=== PATIENT | female | born 1940 | race Caucasian/White ===

== ENCOUNTER → 2020-08-11 16:00 | Outpatient (CLI) | payer OTHER, SELFPAY ==
--- NOTE | ~2020-08-11 | XR_ITS ---
EXAMINATION: XR AC joint BI DATE: 08/11/2020 16:23 INDICATION: Right shoulder pain TECHNIQUE: 2 views of the bilateral acromioclavicular joints were obtained in AP projection with and without weights. COMPARISON: None. FINDINGS: Normal alignment at both shoulders both without and with weightbearing. Specifically no subluxation o f the acromioclavicular joints. There is moderate right-sided mild left-sided acromioclavicular osteo arthritis. The bilateral glenohumeral joints are not profiled however appear unremarkable. No fractur e. Mild to moderate spondylosis in the visualized mid cervical to lower thoracic spine. Atherosclerot ic ossifications project over the expected location of the left carotid bulb. Left lung volume is dec reased with prominent elevation of the left hemidiaphragm and left basilar atelectasis. IMPRESSION: 1. 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 Reviewed, dictated and finalized at location A. ALES SENIOR SPECIALIST
== END ==
PROVIDERS: PCP Internal Medicine; Visit Provider Internal Medicine
DX: M25.511 Pain in right shoulder (principal); M25.512 Pain in left shoulder; M19.012 Primary osteoarthritis, left shoulder
CPT/HCPCS: 73050

== ENCOUNTER 2020-11-11 09:33 | Outpatient (CLI) | payer OTHER, SELFPAY ==
[2020-11-11 10:07] LABS: Basophils Absolute Auto 0.1 K/mm3 (0.0-0.1); Basophils Percent Auto 0.8 % (0.2-1.2); Eosinophils Absolute Auto 0.2 K/mm3 (0-0.3); Eosinophils Percent Auto 2.2 % (0-4.4); Hematocrit 45.1 % (37.0-47.0); Hemoglobin 14.8 g/dL (12.0-15.0); Immature Granulocyte Absolute 0.03 K/mm3 (0.00-0.031); Immature Granulocyte Percent A 0.4 % (0-0.5); Lymphocytes Absolute Auto 0.94 K/mm3 (0.9-3.2); Lymphocytes Percent Auto 12.3 % (18.3-44.2); Mean Corpuscular HGB Conc 32.8 g/dl (32-36); Mean Corpuscular Hemoglobin 31.1 pg (26-34); Mean Corpuscular Volume 94.7 fl (80-100); Mean Platelet Volume 9.2 fl (7.4-10.4); Monocytes Absolute Auto 0.6 K/mm3 (0.1-0.6); Monocytes Percent Auto 8.2 % (2.6-8.5); Neutrophils Absolute Auto 5.8 K/mm3 (1.3-6.7); Neutrophils Percent Auto 76.1 % (45.5-73.1); Platelet Count Result 298 k/mm3 (150-375); Red Blood Count 4.76 M/mm3 (4.2-5.4); Red Cell Distribution Width 11.8 % (11.5-14.5); White Blood Count 7.7 K/mm3 (4.5-10.0)
[2020-11-11 10:20] LABS: Rheumatoid Factor < 8.6 IU/ML (<12)
[2020-11-11 10:23] LABS: CRP 0.7 mg/dL (<1.0); Uric Acid 4.2 mg/dL (2.5-7.5)
[2020-11-11 11:15] LABS: Erythrocyte Sedimentation Rate 24 mm/hr (0-20)
== END 2020-11-11 09:34 | disposition home or self-care (01) ==
PROVIDERS: PCP Internal Medicine; Visit Provider Orthopaedic Surgery
DX: M17.0 Bilateral primary osteoarthritis of knee (principal); M06.9 Rheumatoid arthritis, unspecified
CPT/HCPCS: 36415; 84550; 85025; 85652; 86038; 86140; 86430

== ENCOUNTER 2021-06-29 12:24 | Outpatient (CLI) | payer OTHER, SELFPAY ==
[2021-06-29 13:56] LABS: SARS-CoV-2 RNA PCR Negative (Negative)
== END 2021-06-29 12:25 | disposition home or self-care (01) ==
PROVIDERS: PCP Internal Medicine; Visit Provider Internal Medicine
DX: R68.89 Other general symptoms and signs (principal); Z20.822 Contact with and (suspected) exposure to COVID-19
CPT/HCPCS: C9803; U0003; U0005

== ENCOUNTER 2021-07-06 08:58 | Outpatient (CLI) | payer OTHER, SELFPAY ==
[2021-07-06 11:15] LABS: SARS-CoV-2 RNA PCR Positive (Negative)
== END 2021-07-06 08:59 | disposition home or self-care (01) ==
LOC: CHSLAB 09:00
PROVIDERS: PCP Internal Medicine; Visit Provider Internal Medicine
DX: U07.1 COVID-19 (principal); R68.89 Other general symptoms and signs
CPT/HCPCS: C9803; U0003; U0005

== ENCOUNTER → 2022-03-08 08:38 | Outpatient (CLI) | payer OTHER, SELFPAY ==
--- NOTE | ~2022-03-08 | US_ITS ---
EXAMINATION: US soft tissue head and neck DATE: 03/08/2022 08:56 INDICATION: Left supraclavicular lump. TECHNIQUE: Multiple grayscale and Doppler ultrasound images of the left supraclavicular region were o btained. COMPARISON: None FINDINGS: In the left thyroid lobe, there is a 3.1 cm predominantly solid, isoechoic, wider than tall nodule with ill-defined margin without echogenic foci (TI-RADS TR3). In the left thyroid lobe, there is a 1.8 cm predominantly solid, isoechoic, wider than tall nodule with ill-defined margin without e chogenic foci (TR3). IMPRESSION: 1. Left thyroid nodules in the patient's area of concern. Ultrasound-guided fine-needle aspiration of the 3.1 cm left thyroid nodule is recommended. Reviewed, dictated and finalized at location A. IMPRESSION: 1. Left thyroid nodules in the patient's area of concern. Ultrasound-guided fin e-needle aspiration of the 3.1 cm left thyroid nodule is recommended.
== END ==
PROVIDERS: PCP Family Medicine; Visit Provider Family Medicine
DX: E04.2 Nontoxic multinodular goiter (principal)
CPT/HCPCS: 76536

== ENCOUNTER 2022-03-09 10:49 | Outpatient (CLI) | payer OTHER, SELFPAY ==
[2022-03-09 20:01] LABS: Thyroid Stimulating Hormone Reflex 0.476 uIU/mL (0.465-4.68)
== END 2022-03-09 10:50 | disposition home or self-care (01) ==
LOC: ANHGOSHLAB 10:50
PROVIDERS: PCP Family Medicine; Visit Provider Family Medicine
DX: E04.1 Nontoxic single thyroid nodule (principal)
CPT/HCPCS: 36415; 84443

== ENCOUNTER 2022-03-17 12:35 | Outpatient (CLI) | payer OTHER, SELFPAY ==
--- NOTE | ~2022-03-17 | US_ITS ---
EXAMINATION: US FNA w image guidance DATE: 03/17/2022 13:42 INDICATION: Left thyroid nodule TECHNIQUE: A time-out was performed to verify the patient's name, date of , and procedure to be performed . The procedure and its benefits and risks were discussed with the patient. Risks specifically discus sed included bleeding and infection. The patient understood the risks and agreed to proceed. The neck was prepped and draped in the usual sterile manner. 3 mL 1% lidocaine was used for local anesthesia . 6 passes were made with a 25G needle into the lesion. Appropriate needle location was documented with continuous sonographic guidance. A sterile bandage was applied. There were no immediate compli cations. FINDINGS: Grayscale ultrasound images demonstrate biopsy needles advanced into a 3.3 x 2.1 x 2.4 cm solid heter ogeneously isoechoic TI-RADS 3 left thyroid mass. IMPRESSION: 1. Successful ultrasound-guided fine needle aspiration of 3.3 cm solid TI-RADS 3 left thyroid mass.. Reviewed, dictated and finalized at location A.
== END 2022-03-17 12:36 | disposition home or self-care (01) ==
PROVIDERS: PCP Family Medicine; Visit Provider Family Medicine
DX: E04.1 Nontoxic single thyroid nodule (principal)
CPT/HCPCS: 10005; 88173; 88305

== ENCOUNTER 2022-05-04 08:16 | Day surgery (SDC) | payer OTHER, SELFPAY ==
[2022-04-26 12:16] VITALS: BMI 20.4
[2022-05-04 08:50] VITALS: BP 150/74; PULSE 72; RESP 16; TEMP 36.9; O2SAT 98
[2022-05-04] MEDS: OFLOXACIN 0.3% OPHTH SOLN 5 ML BTL 1 DROP AFFCTD EYE ×2 (08:50→10:42)
[2022-05-04] MEDS: TETRACAINE HCL 0.5% OPHTH SOLN 4 ML BTL 1 DROP AFFCTD EYE ×3 (08:50→09:00)
--- NOTE | 2022-05-04 08:57 | WPDHPUPDATE1 ---
History and Physical Update Update Date/Time: 05/04/22 08:57 History and Physical has been reviewed, including an updated exam of the patient. There are NO changes in the patient's condition. Risks, benefits, and alternatives have been discussed and questions answered. Patient agrees to proceed with procedure.
--- NOTE | 2022-05-04 09:17 | WPDANESEPPF ---
Anes - Initial Pre Proc Eval Procedure: Operation Date: 05/04/22 10:00 Proposed Procedures p Cataract Extraction with Lens Implant-Right Eye - Wilman Bautista MD Date/Time: 05/04/22 09:17 Surgeon: Wilman Bautista MD Pre Op Diagnosis: Cataract Right Eye Patient Data Age: 81 Gender: F Height: 1.63 m Weight: 56.9 kg Last Vital Signs Temp 36.9 C 05/04/22 08:50 Pulse 72 05/04/22 08:50 Resp 16 05/04/22 08:50 BP 150/74 H 05/04/22 08:50 Pulse Ox 98 05/04/22 08:50 O2 Del Method Room Air 05/04/22 08:50 Allergies Allergy/AdvReac Type Severity Reaction Status Date / Time No Known Allergies Allergy Verified 05/04/22 09:16 Home Medications Medication Instructions Recorded Confirmed Type No Home Medications 04/26/22 05/04/22 History Patient hx anesthesia problems: none Family hx anesthesia problems: none Results Review: All pre-operative results and documents have been reviewed as part of the pre-operative evaluation. 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, bilateral GERD (gastroesophageal reflux disease) Hypertension Skin cancer Surgical History Surgical History History of cholecystectomy Family History Family History Sibling Family history of migraine headaches Hypertension Family history of arthritis Father Family history of lung cancer Social History Social History Smoking status: Never smoker Second hand tobacco smoke exposure: No Alcohol intake: never Drinks per week: 3 Alcohol use details: 2-3 glasses of wine per week Substance use: never Substance use type: does not use Living arrangements: with family Gender identity (if verbalized by the patient): Female Spiritual care concerns: No Anes - Eval Final PreProcedure Day of Procedure 05/04/22 09:17 Patient weight: normal Heart: regular rate and rhythm Lungs: clear to auscultation Airway: Mallampati scale class II Neurological: other (alert) Last oral intake: >/= 8 hours ASA classification: II Emergent: no Anesthetic plan: proceed Anesthesia type and monitoring: monitored anesthesia care and standard monitoring Results Review: All pre-operative results and documents have been reviewed as part of the pre-operative evaluation. Informed Consent: The patient's anesthetic plan and its attendant risks and benefits were discussed with the patient/family/POA. Questions were solicited and answers provided to the satisfaction of the patient/family/POA.
[2022-05-04] MEDS: LIDOCAINE HCL 1% PF INJ 5 ML VIAL 1 ML INTRAOCULA (10:25)
[2022-05-04] MEDS: LIDOCAINE HCL 2% JELLY 5 ML TUBE 1 APPLIC AFFCTD EYE (10:29)
[2022-05-04] MEDS: NEOMYCIN/POLYMYXIN/DEXAMETH OP OINT 3.5 GM TUBE 1 APPLIC AFFCTD EYE (10:42)
[2022-05-04] MEDS: BRIMONIDINE TARTRATE 0.2% OP SOLN 5 ML BTL 1 DROP AFFCTD EYE (10:42)
[2022-05-04] MEDS: prednisoLONE ACETATE 1% OPHTH 5 ML 1 DROP AFFCTD EYE (10:42)
[2022-05-04 10:44] VITALS: BP 146/67; PULSE 66; RESP 16; O2SAT 96
[2022-05-04] MEDS: acetaZOLAMIDE TAB 250 MG TABLET PO (10:57)
--- NOTE | 2022-05-04 11:05 | WPDANESPN ---
Anes - Prog Note Post-Op Date/Time: 05/04/22 11:05 Cardiovascular status: normal Respiratory status: normal Airway patency: baseline Mental status: baseline Post-Op hydration status: normal Vital Signs: Last Vital Signs Temp 36.9 C 05/04/22 08:50 Pulse 66 05/04/22 10:44 Resp 16 05/04/22 10:44 BP 146/67 H 05/04/22 10:44 Pulse Ox 96 05/04/22 10:44 O2 Del Method Room Air 05/04/22 10:44 Pain Score (VAS): 0 Patient Feedback: Patient satisfied with anesthetic care.
--- NOTE | 2022-05-04 12:23 | W.PM.PROC2 ---
Procedure Note - Detailed Date of Procedure 05/04/22 Pre-op Diagnosis Cataract Right Eye Post-op Diagnosis Same Procedure Performed Cataract Extraction (by Phacoemulsification) and lntraocular Lens Implant Surgeon Wilman Bautista MD Description of Procedure The eye was anesthetized with topical 0.75% bupivacaine. After intravenous sedation and placement of monitors, the patient was prepped and draped in the usual sterile manner. A lid speculum was placed. A paracentesis was made, and preservative free 1% lidocaine was instilled in the anterior chamber. The anterior chamber was then filled with Viscoat viscoelastic. A alyson keratome was used to create the wound. Continuous tear anterior capsulotomy was performed. The lens was hydro dissected before being removed with phacoemulsification. The remaining lenticular cortex was removed with aspiration. The capsular bag was polished and filled with viscoelastic material. An intraocular lens was chosen, inspected, irrigated and placed within the capsular bag where it was seen to be centered and stable. The viscoelastic material was aspirated. The wound was closed and found to be watertight. Ciloxan drops were placed in the eye. The speculum was removed. A Mishra shield was applied. The patient tolerated the procedure well and left the operating room in satisfactory condition. Implants See chart Complications None Condition Stable Disposition Same day
== END 2022-05-04 11:09 | disposition home or self-care (01) ==
PROVIDERS: PCP Family Medicine; Visit Provider Student in an Organized Health Care Education/Training Program
PROC: (CPT 66983; principal; 2022-05-04 10:00)
DX: H25.11 Age-related nuclear cataract, right eye (principal)
CPT/HCPCS: 66984

== ENCOUNTER 2022-06-01 07:53 | Day surgery (SDC) | payer OTHER, SELFPAY ==
[2022-05-23 13:11] VITALS: BMI 21.2
[2022-06-01 08:45] VITALS: BP 181/72; PULSE 61; RESP 20; TEMP 36.8; O2SAT 99
[2022-06-01] MEDS: TETRACAINE HCL 0.5% OPHTH SOLN 4 ML BTL 1 DROP AFFCTD EYE ×3 (08:50→09:00)
[2022-06-01] MEDS: OFLOXACIN 0.3% OPHTH SOLN 5 ML BTL 1 DROP AFFCTD EYE (08:50)
--- NOTE | 2022-06-01 08:56 | P.PNAN_ITS ---
Anes - Initial Pre Proc Eval Procedure: Operation Date: 06/01/22 09:30 Proposed Procedures p Cataract Extraction with Lens Implant-Left Eye - Wilman Bautista MD Date/Time: 06/01/22 08:56 Surgeon: Wilman Bautista MD Pre Op Diagnosis: Cataract Left Eye Patient Data Age: 81 Gender: F Height: 1.63 m Weight: 56 kg Allergies Allergy/AdvReac Type Severity Reaction Status Date / Time No Known Allergies Allergy Verified 06/01/22 08:53 Home Medications Medication Instructions Recorded Confirmed Type No Home Medications 06/01/22 06/01/22 History Patient hx anesthesia problems: post op nausea/vomiting Family hx anesthesia problems: none Results Review: All pre-operative results and documents have been reviewed as part of the pre- operative evaluation. 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, bilateral GERD (gastroesophageal reflux disease) Hypertension Skin cancer Surgical History Surgical History History of cholecystectomy Family History Family History Sibling Family history of migraine headaches Hypertension Family history of arthritis Father Family history of lung cancer Social History Social History Smoking status: Never smoker Second hand tobacco smoke exposure: No Alcohol intake: current Drinks per week: 3 Alcohol use details: 2-3 glasses of wine per week Substance use: never Substance use type: does not use Living arrangements: with family Gender identity (if verbalized by the patient): Female Spiritual care concerns: No Anes - Eval Final PreProcedure Day of Procedure 06/01/22 08:56 Patient weight: normal Heart: regular rate and rhythm Lungs: clear to auscultation Airway: Mallampati scale class II Neurological: other (alert) Last oral intake: >/= 8 hours ASA classification: II Emergent: no Anesthetic plan: proceed Anesthesia type and monitoring: monitored anesthesia care and standard monitoring Results Review: All pre-operative results and documents have been reviewed as part of the pre- operative evaluation. Informed Consent: The patient's anesthetic plan and its attendant risks and benefits were discussed with the patient/family/POA. Questions were solicited and answers provided to the satisfaction of the patient/family/POA.
--- NOTE | 2022-06-01 09:02 | WPDHPUPDATE1 ---
History and Physical Update Update Date/Time: 06/01/22 09:02 History and Physical has been reviewed, including an updated exam of the patient. There are NO changes in the patient's condition. Risks, benefits, and alternatives have been discussed and questions answered. Patient agrees to proceed with procedure.
[2022-06-01] MEDS: LIDOCAINE HCL 2% JELLY 5 ML TUBE 1 APPLIC AFFCTD EYE (09:39)
[2022-06-01] MEDS: LIDOCAINE HCL 1% PF INJ 5 ML VIAL 1 ML INTRAOCULA (09:48)
[2022-06-01] MEDS: NEOMYCIN/POLYMYXIN/DEXAMETH OP OINT 3.5 GM TUBE 1 APPLIC AFFCTD EYE (10:03)
[2022-06-01 10:05] VITALS: BP 139/66; PULSE 63; RESP 14; O2SAT 98
[2022-06-01] MEDS: acetaZOLAMIDE TAB 250 MG TABLET PO (10:13)
--- NOTE | 2022-06-01 10:21 | WPDANESPN ---
Anes - Prog Note Post-Op Date/Time: 06/01/22 10:21 Cardiovascular status: normal Respiratory status: normal Airway patency: baseline Mental status: baseline Post-Op hydration status: normal Vital Signs: Last Vital Signs Temp 36.8 C 06/01/22 08:45 Pulse 63 06/01/22 10:05 Resp 14 06/01/22 10:05 BP 139/66 06/01/22 10:05 Pulse Ox 98 06/01/22 10:05 O2 Del Method Room Air 06/01/22 10:05 Pain Score (VAS): 0 Patient Feedback: Patient satisfied with anesthetic care.
--- NOTE | 2022-06-01 11:53 | W.PM.PROC2 ---
Procedure Note - Detailed Date of Procedure 06/01/22 Pre-op Diagnosis 1) Cataract Left Eye 2) Miotic pupillary cyst LEFT eye Post-op Diagnosis Same Procedure Performed Complex cataract Extraction (by Phacoemulsification) and lntraocular Lens Implant Surgeon Wilman Bautista MD Anesthesia MAC Description of Procedure The eye was anesthetized with topical 0.75% bupivacaine. After intravenous sedation and placement of monitors, the patient was prepped and draped in the usual sterile manner. A lid speculum was placed. A paracentesis was made, and preservative free 1% lidocaine was instilled in the anterior chamber. The anterior chamber was then filled with Viscoat viscoelastic and a Malyugin ring was placed. A alyson keratome was used to create the wound. Continuous tear anterior capsulotomy was performed. The lens was hydro dissected before being removed with phacoemulsification. The remaining lenticular cortex was removed with aspiration. The capsular bag was polished and filled with viscoelastic material. An intraocular lens was chosen, inspected, irrigated and placed within the capsular bag where it was seen to be centered and stable. The ring was removed and viscoelastic material was aspirated. The wound was closed and found to be watertight. Ciloxan drops were placed in the eye. The speculum was removed. A Mishra shield was applied. The patient tolerated the procedure well and left the operating room in satisfactory condition. Implants See chart Complications None Condition Stable Disposition Same day
== END 2022-06-01 10:31 | disposition home or self-care (01) ==
PROVIDERS: PCP Family Medicine; Visit Provider Student in an Organized Health Care Education/Training Program
PROC: (CPT 66983; principal; 2022-06-01 09:30)
DX: H25.12 Age-related nuclear cataract, left eye (principal)
CPT/HCPCS: 66982

== ENCOUNTER 2022-08-30 10:08 | Outpatient (CLI) | payer OTHER, SELFPAY ==
[2022-08-30 19:26] LABS: Alanine Aminotransferase 19 U/L (6-35); Albumin Level 4.4 g/dL (3.5-5.1); Alkaline Phosphatase 80 U/L (38-126); Anion Gap 6 mmol/L (8-16); Aspartate Amino Transferase 40 U/L (14-36); Bilirubin,Total 0.5 mg/dL (0.2-1.3); Blood Urea Nitrogen 16 mg/dL (7-17); Calcium 9.4 mg/dL (8.4-10.2); Carbon Dioxide 29 mmol/L (22-30); Chloride 104 mmol/L (98-107); Estimated Glomerular Filt Rate > 60; Glucose 77 mg/dL (65-110); Sodium 139 mmol/L (137-145)
== END 2022-08-30 10:09 | disposition home or self-care (01) ==
LOC: ANHGOSHLAB 10:09
PROVIDERS: PCP Family Medicine; Visit Provider Family Medicine
DX: E78.5 Hyperlipidemia, unspecified (principal); Z13.220 Encounter for screening for lipoid disorders; Z13.228 Encounter for screening for other metabolic disorders
CPT/HCPCS: 36415; 80053

== ENCOUNTER 2023-05-04 09:33 | Outpatient (CLI) | payer OTHER, SELFPAY ==
[2023-05-04 12:41] LABS: Basophils Absolute Auto 0.1 K/mm3 (0.0-0.1); Basophils Percent Auto 1.3 % (0.2-1.2); Eosinophils Absolute Auto 0.2 K/mm3 (0-0.3); Eosinophils Percent Auto 3.4 % (0-4.4); Hematocrit 46.6 % (37.0-47.0); Immature Granulocyte Absolute 0.02 K/mm3 (0.00-0.031); Immature Granulocyte Percent A 0.4 % (0-0.5); Lymphocytes Absolute Auto 0.95 K/mm3 (0.9-3.2); Lymphocytes Percent Auto 17.8 % (18.3-44.2); Mean Corpuscular HGB Conc 32.2 g/dl (32-36); Mean Corpuscular Hemoglobin 31.7 pg (26-34); Mean Corpuscular Volume 98.5 fl (80-100); Mean Platelet Volume 10.3 fl (7.4-10.4); Monocytes Absolute Auto 0.5 K/mm3 (0.1-0.6); Monocytes Percent Auto 8.4 % (2.6-8.5); Neutrophils Absolute Auto 3.7 K/mm3 (1.3-6.7); Neutrophils Percent Auto 68.7 % (45.5-73.1); Platelet Count Result 265 k/mm3 (150-375); Red Blood Count 4.73 M/mm3 (4.2-5.4); Red Cell Distribution Width 11.9 % (11.5-14.5); White Blood Count 5.3 K/mm3 (4.5-10.0)
[2023-05-04 16:26] LABS: Alanine Aminotransferase 16 U/L (6-35); Albumin Level 4.5 g/dL (3.5-5.1); Alkaline Phosphatase 71 U/L (38-126); Anion Gap 6 mmol/L (8-16); Aspartate Amino Transferase 30 U/L (14-36); Bilirubin,Total 0.6 mg/dL (0.2-1.3); Blood Urea Nitrogen 14 mg/dL (7-17); Calcium 9.7 mg/dL (8.4-10.2); Carbon Dioxide 30 mmol/L (22-30); Chloride 104 mmol/L (98-107); Estimated Glomerular Filt Rate > 60; Glucose 87 mg/dL (65-110); Potassium 3.9 mmol/L (3.4-5.0); Sodium 140 mmol/L (137-145)
[2023-05-04 22:22] LABS: Thyroid Stimulating Hormone Reflex 0.648 uIU/mL (0.465-4.68)
== END 2023-05-04 09:34 | disposition home or self-care (01) ==
LOC: ANHGOSHLAB 09:35
PROVIDERS: PCP Family Medicine; Visit Provider Family Medicine
DX: R53.83 Other fatigue (principal); Z13.228 Encounter for screening for other metabolic disorders; Z13.29 Encounter for screening for other suspected endocrine disorder
CPT/HCPCS: 36415; 80053; 84443; 85025

== ENCOUNTER 2023-05-10 15:32 | Outpatient (CLI) | payer OTHER, SELFPAY ==
--- NOTE | ~2023-05-10 | CT_ITS ---
EXAMINATION: CT brain wo con DATE: 05/10/2023 15:46 INDICATION: Syncope and collapse. TECHNIQUE: Computed tomography (CT) of the head was performed without intravenous contrast. The mA wa s adjusted according to patient size. Iterative reconstruction technique was employed. The dose-lengt h product was 605.33 mGy-cm. COMPARISON: None FINDINGS: There is no intracranial hemorrhage, acute infarction, or abnormal intracranial mass lesion . There are scattered areas of low attenuation in the cerebral white matter. The ventricles are renay l in size. There is mild mucosal thickening in the paranasal sinuses. There are likely changes of ocu lar lens replacement surgeries. The mastoid air cells are normal. IMPRESSION: 1. Moderate nonspecific cerebral white matter disease, which likely represents chronic small vessel i schemic disease. Reviewed, dictated and finalized at location E. MACY BUYER IMPRESSION: 1. Moderate nonspecific cerebral white matter disease, which likely represents chronic small vessel ischemic disease.
== END 2023-05-10 15:33 | disposition home or self-care (01) ==
LOC: ANHIMG 15:33
PROVIDERS: PCP Family Medicine; Visit Provider Family Medicine
DX: R55 Syncope and collapse (principal); R90.82 White matter disease, unspecified
CPT/HCPCS: 70450

== ENCOUNTER 2023-06-01 14:35 | Outpatient (CLI) | payer OTHER, SELFPAY ==
--- NOTE | 2023-06-01 14:58 | ECHO_ITS ---
Patient Info Name: Pia Menchaca Age: 82 years : 1940 Gender: Female Ht: 64 in Wt: 124 lbs BSA: 1.59 m2 HR: 61 bpm BP: 148 / 81 mmHg Heart Rhythm: Sinus Rhythm Technical Quality: Good Exam Date: 06/01/2023 3:04 PM Exam Location: Echo Lab Patient Status: Outpatient Admit Date: 06/01/2023 Staff Ordering Physician: Elijah Shanks DO Medical Laboratory Technician: Davian Johnson RDCS Attending Provider: Elijah Shanks DO Referring Physician: Dimitris MAR; Exam Type: CA echo doppler color flow Study Info Indications - syncope Complete two-dimensional, color flow and Doppler transthoracic echocardiogram is performed. Summary 1. Complete two-dimensional, color flow and Doppler transthoracic echocardiogram is performed. 2. Left ventricular chamber dimension is normal. 3. Left ventricular systolic function is normal, estimated at 60-65%. 4. The left ventricular diastolic function is grade I diastolic dysfunction. 5. E/e' 11 is mildly elevated. 6. There is moderate aortic valve sclerosis. 7. There is mild aortic valve stenosis with a peak velocity of 225 cm/s, mean gradient of 11 mmHg, and aortic valve area of 1.9 cm2. 8. There is moderate aortic valve regurgitation. 9. There is mild tricuspid valve regurgitation. 10. No pulmonary hypertension, estimated pulmonary arterial systolic pressure is 30 mmHg. 11. There is trace pulmonic regurgitation. Left Ventricle E/e' 11 is mildly elevated. Left ventricular chamber dimension is normal. Left ventricular systolic function is normal, estimated at 60-65%. The left ventricular diastolic function is grade I diastolic dysfunction. Right Ventricle Right ventricular chamber dimension is normal. Right ventricular systolic function is normal. Left Atria Left atrial chamber dimension is normal. Right Atria Right atrial chamber dimension is normal. Aortic Valve The aortic valve is trileaflet. There is moderate aortic valve sclerosis. There is mild aortic valve stenosis with a peak velocity of 225 cm/s, mean gradient of 11 mmHg, and aortic valve area of 1.9 cm2. There is moderate aortic valve regurgitation. Pulmonic Valve There is trace pulmonic regurgitation. Mitral Valve There is no mitral valve stenosis. There is no mitral valve regurgitation. Tricuspid Valve There is mild tricuspid valve regurgitation. No pulmonary hypertension, estimated pulmonary arterial systolic pressure is 30 mmHg. Pericardium/Pleural There is no pericardial effusion. Inferior Vena Cava Normal inferior vena cava with >50% collapse upon inspiration consistent with normal right atrial pressure, 5 mmHg. Aorta The aortic root size at the sinus of Valsalva is normal. Left Ventricular Outflow Tract Name Value Normal LVOT 2D LVOT Diameter 1.8 cm LVOT Doppler LVOT Peak Gradient 10 mmHg LVOT Mean Gradient 6 mmHg LVOT VTI 36 cm LVOT VTI/AV VTI Ratio 0.8 LVOT Stroke Volume 88 ml LVOT CO 4.5 l/min LVOT CI 2.8 l/min/m2 Pulmonic Valve
== END 2023-06-01 14:36 | disposition home or self-care (01) ==
LOC: ANHCARD 14:35
PROVIDERS: PCP Family Medicine; Visit Provider Family Medicine
DX: R55 Syncope and collapse (principal); I08.3 Combined rheumatic disorders of mitral, aortic and tricuspid valves
CPT/HCPCS: 93306

== ENCOUNTER 2023-06-05 13:18 | Outpatient (CLI) | payer OTHER, SELFPAY ==
--- NOTE | 2023-06-08 14:30 | WPDHOLTEREM ---
Holter/Event Monitor Holter/Event Monitor Date of procedure: 06/05/23 Holter/Event Procedure: 48 Hr Holter Monitor Indications: Syncope Conclusion: 1. 48 hour holter monitor on 06/05/23. 2. Predominant rhythm is sinus rhythm. HR range 49-119 bpm; average HR 68 bpm. 3. There are 197 premature supraventricular complexes and 15 supraventricular couplets. There is 1 episode of atrial tachycardia at 119 bpm lasting 15 seconds at 20:11. 4. There are 2 premature ventricular complexes. No ventricular tachycardia. 5. No sinoatrial or atrioventricular blocks. No significant pauses greater than 2 seconds. 6. No symptoms available for correlation.
== END 2023-06-05 13:19 | disposition home or self-care (01) ==
LOC: ANHCARD 13:19
PROVIDERS: PCP Family Medicine; Visit Provider Family Medicine
DX: R55 Syncope and collapse (principal)
CPT/HCPCS: 93225; 93226

== ENCOUNTER 2023-08-24 12:33 | Outpatient (CLI) | payer OTHER, SELFPAY ==
[2023-08-24 13:51] LABS: SARS-CoV-2 RNA PCR Negative (Negative)
[2023-08-25 13:04] LABS: Influenza A QL RT-PCR Negative (Negative); Influenza B QL RT-PCR Negative (Negative)
== END 2023-08-24 12:34 | disposition home or self-care (01) ==
LOC: ANHLAB 12:34
PROVIDERS: PCP Family Medicine; Visit Provider Family Medicine
DX: R68.89 Other general symptoms and signs (principal); Z20.822 Contact with and (suspected) exposure to COVID-19
CPT/HCPCS: 87502; 87635

== ENCOUNTER 2023-08-29 09:28 | Outpatient (CLI) | payer OTHER, SELFPAY ==
[2023-08-29 18:39] LABS: Alanine Aminotransferase 35 U/L (6-35); Albumin Level 3.9 g/dL (3.5-5.1); Alkaline Phosphatase 80 U/L (38-126); Anion Gap 4 mmol/L (8-16); Aspartate Amino Transferase 43 U/L (14-36); Bilirubin,Total 0.7 mg/dL (0.2-1.3); Blood Urea Nitrogen 9 mg/dL (7-17); Calcium 9.2 mg/dL (8.4-10.2); Carbon Dioxide 31 mmol/L (22-30); Chloride 102 mmol/L (98-107); Cholesterol 154 mg/dL (0-200); Estimated Glomerular Filt Rate > 60; Glucose 88 mg/dL (65-110); HDL Direct 58 mg/dL; Lipase 98 U/L (23-300); Sodium 137 mmol/L (137-145); Triglycerides 102 mg/dL (<150)
[2023-08-29 18:41] LABS: Basophils Percent Auto 0.6 % (0.2-1.2); Eosinophils Absolute Auto 0.1 K/mm3 (0-0.3); Eosinophils Percent Auto 1.4 % (0-4.4); Hematocrit 47.7 % (37.0-47.0); Hemoglobin 15.4 g/dL (12.0-15.0); Immature Granulocyte Absolute 0.01 K/mm3 (0.00-0.031); Immature Granulocyte Percent A 0.1 % (0-0.5); Lymphocytes Absolute Auto 0.91 K/mm3 (0.9-3.2); Lymphocytes Percent Auto 12.8 % (18.3-44.2); Mean Corpuscular HGB Conc 32.3 g/dl (32-36); Mean Corpuscular Hemoglobin 31.8 pg (26-34); Mean Corpuscular Volume 98.6 fl (80-100); Mean Platelet Volume 10.2 fl (7.4-10.4); Monocytes Absolute Auto 0.6 K/mm3 (0.1-0.6); Monocytes Percent Auto 8.2 % (2.6-8.5); Neutrophils Absolute Auto 5.5 K/mm3 (1.3-6.7); Neutrophils Percent Auto 76.9 % (45.5-73.1); Platelet Count Result 312 k/mm3 (150-375); Red Blood Count 4.84 M/mm3 (4.2-5.4); Red Cell Distribution Width 12.1 % (11.5-14.5); White Blood Count 7.1 K/mm3 (4.5-10.0)
[2023-08-29 21:39] LABS: LDL Cholesterol Direct 75 mg/dL
== END 2023-08-29 09:29 | disposition home or self-care (01) ==
LOC: ANHGOSHLAB 09:29
PROVIDERS: PCP Family Medicine; Visit Provider Family Medicine
DX: E78.5 Hyperlipidemia, unspecified (principal); R10.9 Unspecified abdominal pain; R53.83 Other fatigue; Z13.228 Encounter for screening for other metabolic disorders
CPT/HCPCS: 36415; 80053; 80061; 83690; 85025

== ENCOUNTER → 2023-08-31 08:15 | Outpatient (CLI) | payer OTHER, SELFPAY ==
--- NOTE | ~2023-08-31 | US_ITS ---
EXAMINATION: US soft tissue head and neck DATE: 08/31/2023 08:27 INDICATION: Localized enlarged lymph nodes. TECHNIQUE: Multiple grayscale and Doppler ultrasound images of the head and neck were obtained. COMPARISON: None FINDINGS: In the left neck, there is a normal lymph node in the patient's area of concern. IMPRESSION: 1. No abnormal mass or lymphadenopathy in the patient's area of concern in left neck. Reviewed, dictated and finalized at location A. ANALYST
== END ==
PROVIDERS: PCP Family Medicine; Visit Provider Family Medicine
DX: R59.0 Localized enlarged lymph nodes (principal)
CPT/HCPCS: 76536

== ENCOUNTER 2024-04-02 11:12 | Outpatient (CLI) | payer OTHER, SELFPAY ==
--- NOTE | ~2024-04-02 | CT_ITS ---
CT soft tissue neck w con Ordering provider: Elijah Shanks DO History: 83 years Female with . R68.84 - Jaw pain . Comparison: None. Technique: CT soft tissues neck was performed with contrast. . Automated exposure control and iterat ann reconstruction technique were employed. The dose-length product was 438.42 mGy-cm. Findings: LOWER HEAD: The visualized brain parenchyma, optic globes/orbits and mastoids are normal. The visua lized paranasal sinuses are well aerated. SALIVARY GLANDS: Normal. THYROID:Enlarged left thyroid lobe measuring 4.1 x 2.7 cm. Pneumonitis is not excluded. Multiple smal l nodules in the right lobe of thyroid. SUPRAHYOID DEEP SPACES: Normal. CAROTID ARTERIES: Normal. JUGULAR VEINS: Normal. TONSILS: Normal. ORAL CAVITY: Partially obscured by dental amalgam but normal as visualized. Dental cares is seen ante riorly in the lower mandible in the left paracentral area. PHARYNX, LARYNX AND TRACHEA: Patent and normal. No prevertebral soft tissue swelling. SUPERFICIAL SOFT TISSUES: Normal. No lymphadenopathy or neck mass. THORACIC INLET/VISUALIZED UPPER CHEST: Normal. SKELETAL: Age appropriate degenerative changes. Possible left diaphragmatic hernia with bowel loops seen in the left thoracic area. IMPRESSION: 1. Enlarged left lobe thyroid with highly suggestive mass lesion. Multiple small nodules in the righ t lobe of the thyroid. 2. Possible dental care is in the left anterior mandible. Clinical evaluation of size. 3. Possible diaphragmatic hernia in the left hemithorax. Reviewed, dictated and finalized at location A. IMPRESSION: 1. Enlarged left lobe thyroid with highly suggestive mass lesion. Multiple sma ll nodules in the right lobe of the thyroid. 2. Possible dental care is in the left anterior mandible. Clinical evaluation of size. 3. Possible diaphragmatic hernia in the left hemithorax.
[2024-04-02 11:53] LABS: Estimated Glomerular Filt Rate > 60
== END 2024-04-02 11:13 | disposition home or self-care (01) ==
LOC: ANHIMG 11:14
PROVIDERS: PCP Family Medicine; Visit Provider Family Medicine
DX: R59.0 Localized enlarged lymph nodes (principal); R68.84 Jaw pain; E04.2 Nontoxic multinodular goiter
CPT/HCPCS: 70491; Q9967

== ENCOUNTER 2024-04-05 09:09 | Outpatient (CLI) | payer OTHER, SELFPAY ==
--- NOTE | ~2024-04-05 | US_ITS ---
EXAMINATION: US thyroid DATE: 04/05/2024 09:48 INDICATION: Nontoxic single thyroid nodule. TECHNIQUE: Multiple ultrasound images of the thyroid were obtained. COMPARISON: Ultrasound 03/10/2022, neck CT 04/02/2024 FINDINGS: The right thyroid lobe measures 5.4 x 1.9 x 1.8 cm. The left thyroid lobe measures 5.7 x 2.4 x 3.6 c m. In the right thyroid lobe, there is a 1.4 cm almost completely solid, isoechoic, wider than tall nodule with smooth margin without echogenic foci (TI-RADS TR3). In the left thyroid lobe, there is a 2.3 cm almost completely solid, isoechoic, wider than tall nodule with ill-defined margins without ec hogenic foci (TR3) decreased in size from 03/17/2022 when biopsy was benign. IMPRESSION: 1. Thyroid nodules, likely not clinically significant. No follow-up is needed. Reviewed, dictated and finalized at location A.
== END 2024-04-05 09:10 | disposition home or self-care (01) ==
PROVIDERS: PCP Family Medicine; Visit Provider Family Medicine
DX: E04.2 Nontoxic multinodular goiter (principal)
CPT/HCPCS: 76536

== ENCOUNTER 2024-06-28 09:07 | Outpatient (CLI) | payer OTHER, SELFPAY ==
[2024-06-28 12:11] LABS: Alanine Aminotransferase 19 U/L (6-35); Albumin Level 4.1 g/dL (3.5-5.1); Alkaline Phosphatase 69 U/L (38-126); Anion Gap 2 mmol/L (4-12); Aspartate Amino Transferase 40 U/L (14-36); Bilirubin,Total 0.6 mg/dL (0.2-1.3); Blood Urea Nitrogen 17 mg/dL (7-17); Calcium 9.3 mg/dL (8.4-10.2); Carbon Dioxide 27 mmol/L (22-30); Chloride 110 mmol/L (98-107); Cholesterol 217 mg/dL (0-200); Estimated Glomerular Filt Rate > 60; Glucose 82 mg/dL (65-110); HDL Direct 86 mg/dL; Potassium 4.2 mmol/L (3.4-5.0); Sodium 139 mmol/L (137-145); Triglycerides 66 mg/dL (<150)
[2024-06-28 12:22] LABS: LDL Cholesterol Direct 91 mg/dL
[2024-06-28 13:39] LABS: Free T4 Free Thyroxine Reflex 1.52 ng/dL (0.78-2.19)
[2024-06-28 15:09] LABS: Total Triiodothyronine (T3) 1.27 NG/ML (0.97-1.69)
== END 2024-06-28 09:08 | disposition home or self-care (01) ==
PROVIDERS: PCP Family Medicine; Visit Provider Family Medicine
DX: E78.5 Hyperlipidemia, unspecified (principal); Z13.228 Encounter for screening for other metabolic disorders; Z13.29 Encounter for screening for other suspected endocrine disorder
CPT/HCPCS: 36415; 80053; 80061; 84439; 84443; 84480

== ENCOUNTER 2025-01-06 11:06 | Outpatient (CLI) | payer OTHER, SELFPAY ==
[2025-01-06 13:24] LABS: Hematocrit 46.0 % (37.0-47.0); Hemoglobin 14.8 g/dL (12.0-15.0); Immature Granulocyte Percent A 0.4 % (0-0.5); Lymphocytes Absolute Auto 1.28 K/mm3 (0.9-3.2); Mean Corpuscular HGB Conc 32.2 g/dl (32-36); Mean Corpuscular Hemoglobin 31.4 pg (26-34); Mean Corpuscular Volume 97.5 fl (80-100); Nucleated Red Blood Cells Absolute Auto 0.000 K/mm3 (0.0-0.012); Nucleated Red Blood Cells Perc 0.0 % (0.0-0.2); Platelet Count Result 234 k/mm3 (150-375); Red Blood Count 4.72 M/mm3 (4.2-5.4); White Blood Count 4.5 K/mm3 (4.5-10.0)
[2025-01-06 13:42] LABS: Alanine Aminotransferase 18 U/L (6-35); Albumin Level 4.4 g/dL (3.5-5.1); Alkaline Phosphatase 74 U/L (38-126); Anion Gap 11 mmol/L (4-12); Aspartate Amino Transferase 44 U/L (14-36); Bilirubin,Total 0.3 mg/dL (0.2-1.3); Blood Urea Nitrogen 17 mg/dL (7-17); Calcium 9.6 mg/dL (8.4-10.2); Carbon Dioxide 24 mmol/L (22-30); Chloride 106 mmol/L (98-107); Estimated Glomerular Filt Rate > 60; Glucose 91 mg/dL (65-110); Potassium 4.3 mmol/L (3.4-5.0); Sodium 141 mmol/L (137-145); Total Protein 7.4 g/dL (6.3-8.2)
[2025-01-06 14:05] LABS: Thyroid Stimulating Hormone 0.453 uIU/mL (0.465-4.680)
[2025-01-06 14:24] LABS: Vitamin B12 558.0 pg/mL (239-931)
== END 2025-01-06 11:07 | disposition home or self-care (01) ==
PROVIDERS: PCP Family Medicine; Visit Provider Family Medicine
DX: E78.5 Hyperlipidemia, unspecified (principal); I10 Essential (primary) hypertension; K21.9 Gastro-esophageal reflux disease without esophagitis; Z85.9 Personal history of malignant neoplasm, unspecified; R59.0 Localized enlarged lymph nodes; Z00.00 Encounter for general adult medical examination without abnormal findings; I83.93 Asymptomatic varicose veins of bilateral lower extremities
CPT/HCPCS: 36415; 80053; 82607; 84443; 85025

== ENCOUNTER 2025-05-22 08:40 | Outpatient (CLI) | payer OTHER, SELFPAY ==
--- NOTE | ~2025-05-22 | US_ITS ---
EXAMINATION: US abdomen limited DATE: 05/22/2025 09:44 INDICATION: Abnormal enzymes TECHNIQUE: Multiple grayscale and Doppler ultrasound images of the abdomen were obtained. COMPARISON: None FINDINGS: The liver measures up to 15.8 cm and appears grossly normal other than mild diffusely increased echotexture. Portal venous flow is hepatopedal The gallbladder has been removed. Common bile duct: 3.2 mm Pancreas is incompletely visualized. Incidentally noted increased echogenicity in the renal sinus and foraminal region similar as may be seen with nephrocalcinosis. No hydronephrosis or discrete mass seen. IMPRESSION: 1. Probably mild fatty liver changes in otherwise normal-appearing liver. Patient status post cholecystectomy. 2. Incomplete visualization of the pancreas. 3. 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 Reviewed, dictated and finalized at location A. BI DEVELOPER IMPRESSION: 1. Probably mild fatty liver changes in otherwise normal-appearing liver. Patie nt status post cholecystectomy. 2. Incomplete visualization of the pancreas. 3. 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
== END 2025-05-22 08:41 | disposition home or self-care (01) ==
PROVIDERS: PCP Family Medicine; Visit Provider Family Medicine
DX: R74.01 Elevation of levels of liver transaminase levels (principal)
CPT/HCPCS: 76705